=== PATIENT | male | born 1985 | race African-American/Black ===

== ENCOUNTER 2024-04-16 17:37 | Emergency (ER) | payer OTHER, SELFPAY ==
[2024-04-16 17:52] VITALS: BP 136/77; PULSE 96; RESP 16; TEMP 37; O2SAT 97; BMI 33.4
[2024-04-16 19:01] LABS: Strep A DNA Probe* DETECTED (Not Detectd)
[2024-04-16 19:13] LABS: PCR FLU A Negative PCR FLU A (Negative); PCR FLU B Negative PCR FLU B (Negative); SARS PCR* Negative SARS-CoV-2 (Negative)
--- NOTE | 2024-04-16 19:28 | ED.GENADULT ---
HPI - General Adult General Date Seen: 04/16/24 Chief complaint: Sore Throat Stated complaint: weak, sore throat Time Seen by Provider: 04/16/24 19:13 Source: patient Mode of arrival: ambulatory Limitations: no limitations History of Present Illness HPI narrative: Patient is a 38-year-old male presenting to the emergency department for sore throat. Symptoms have been going on for the past few days. Feels like sore throat getting worse. Does have some congestion but denies any chest pain. Feels like it is sometimes hard to breathe. Has had decrease in smell and taste. Has noticed some rhinorrhea. Denies weakness, numbness, abdominal pain, nausea, vomiting, headache, vision changes. Not aware of any sick contacts. No other concerns noted. Has not noticed any changes in his voice Related Data Allergies Allergy/AdvReac Type Severity Reaction Status Date / Time PCN Allergy Mild Uncoded 04/16/24 17:59 Review of Systems Status of ROS: Reports: 10 or more systems reviewed and unremarkable except as noted in History and below Exam Narrative: Exam Narrative: Const: Well-nourished, Well-developed, in mild distress Eyes: PERRL, no conjunctival injection, and symmetrical lids HENT: Atraumatic external nose and ears. Moist mucous membranes. Uvula midline, mild tonsillar swelling. No tonsillar exudate. Erythematous oropharynx. Neck: Symmetric, trachea midline, No thyromegaly. CVS: RRR, No murmurs or gallops. Peripheral pulses 2+ and equal in all extremities RESP: Unlabored respiratory effort. Clear to auscultation bilaterally. GI: Nontender/Nondistended, No rebound or guarding. MSK:Extremities w/o deformity, Normal Active ROM Skin: Warm, Dry. No rashes or lesions. Neuro: Normal Muscle tone, No focal neurological deficits. Psych: Awake, Alert, & Oriented x3. Appropriate mood and affect. Const: Vital Signs, click to edit/add: Vital Signs - 24 hr 04/16/24 17:52 Temperature 98.6 F Pulse Rate [Pulse Oximeter] 96 Respiratory Rate 16 Blood Pressure [Ri ght Forearm] 136/77 Pulse Oximetry 97 Oxygen Delivery Me thod Room Air Course Vital Signs Vital signs: Initial Vital Signs Temperature 98.6 F 04/16/24 17:52 Temperature Source Temporal Artery Scan 04/16/24 17:52 Pulse Rate 96 04/16/24 17:52 Respiratory Rate 16 04/16/24 17:52 Blood Pressure 136/77 04/16/24 17:52 Blood Pressure Mean 96 04/16/24 17:52 Blood Pressure Position Sitting 04/16/24 17:52 Pulse Oximetry 97 04/16/24 17:52 Oxygen Delivery Method Room Air 04/16/24 17:52 Vital Signs Temperature 98.6 F 04/16/24 17:52 Pulse Rate 96 04/16/24 17:52 Respiratory Rate 16 04/16/24 17:52 Blood Pressure 136/77 04/16/24 17:52 Pulse Oximetry 97 04/16/24 17:52 Oxygen Delivery Method Room Air 04/16/24 17:52 Temperature 98.6 F 04/16/24 17:52 Pulse Rate 96 04/16/24 17:52 Respiratory Rate 16 04/16/24 17:52 Blood Pressure 136/77 04/16/24 17:52 Pulse Oximetry 97 04/16/24 17:52 Oxygen Delivery Method Room Air 04/16/24 17:52 Medical Decision Making MDM Narrative Medical decision making narrative: Patient is a 38-year-old male presenting for sore throat. Patient is not showing signs of peritonsillar abscess, Dhaval angina, retropharyngeal abscess,Lemierre disease or any other concerning oral pharynx or deep neck space abscesses. Imaging is not necessary. His symptoms are all mostly likely from his positive strep test that came back. He has COVID and flu negative. He is looking well at this time with stable vital signs. Will give a dose of dexamethasone prior to discharge. Will start him on antibiotics. He is agreeable to this plan. insurance follow up specialist the antibiotics at [facility] Lab Data Labs: Lab Results 04/16/24 Range/Units Unknown SARS-CoV-2 (PCR) Negative SARS-CoV-2 (Negative) Influenza Type A (PCR) Negative PCR FLU A (Negative) Influenza Type B (PCR) Negative PCR FLU B (Negative) Group A Strep DNA DETECTED A (Not Detectd) Discharge Plan Discharge Clinical Impression: Acute streptococcal pharyngitis Patient Disposition: Home, Self-Care Condition: Stable Instructions: Strep Throat (DC) Additional Instructions: Take azithromycin as directed. Return to emergency department for any new or worsening symptoms such as inability to breathe or a hot potato sounding voice. At this time I do not see signs of abscess of those symptoms could be a sign you are developing 1. Once your been on antibiotics for 24 hours and do not have a fever you are no longer considered contagious. Stand Alone Forms: [facility] Info Instructions
[2024-04-16] MEDS: dexAMETHasone 10 MG/ML inj PO (19:42)
== END 2024-04-16 20:42 | disposition home or self-care (01) ==
PROVIDERS: Emergency Provider Student in an Organized Health Care Education/Training Program
DX: J02.0 Streptococcal pharyngitis (principal)
CPT/HCPCS: 87631; 87651; 99282; 99283; J1100